=== PATIENT | female | born 2005 | race Caucasian/White ===

== ENCOUNTER 2024-06-07 01:45 | Inpatient (IN) | payer SELFPAY ==
[~2024-06-07] VITALS: Ht 152.4 cm; Wt 64.9 kg
[2024-06-07 02:39] LABS: CLARITY URINE CLOUDY (CLEAR); COLOR URINE YELLOW (YELLOW); GLUCOSE URINE NEGATIVE (NEGATIVE); KETONES URINE TRACE (NEGATIVE); LEUKOCYTE ESTERASE URINE 1+ (NEGATIVE); NITRITE URINE NEGATIVE (NEGATIVE); OCCULT BLOOD URINE NEGATIVE (NEGATIVE); PROTEIN URINE 1+ (NEGATIVE); SPECIFIC GRAVITY URINE 1.022 (1.005-1.030)
[2024-06-07 02:45] LABS: BASOPHILS % 0.3 % (0.0-2.0); EOSINOPHILS % 0.1 % (0.0-5.0); HEMATOCRIT. 38.3 % (36.0-48.0); HEMOGLOBIN. 12.9 g/dL (12.0-16.0); LYMPHOCYTES % 13.1 % (20.0-50.0); MEAN CORPUSCULAR HEMOGLOBIN 29.7 pg (28.0-32.0); MEAN CORPUSCULAR HGB CONC 33.7 g/dL (31.0-37.0); MEAN CORPUSCULAR VOLUME 88.3 fL (81.0-99.0); MEAN PLATELET VOLUME 7.4 fl (7.4-10.4); MONOCYTES % 8.2 % (2.0-8.0); NEUTROPHILS % 78.3 % (40.0-76.0); PLATELET 310 x1000/uL (130-400); RED BLOOD CELL COUNT 4.34 mill/uL (4.2-5.4); RED CELL DISTRIBUTION WIDTH 13.7 % (11.6-14.6); WHITE BLOOD COUNT 13.9 x1000/uL (4.5-11.0)
[2024-06-07 02:59] LABS: CHLORIDE 105 mEq/L (98-107); POTASSIUM 3.6 mEq/L (3.5-5.1); SODIUM 136 mEq/L (136-145)
[2024-06-07 03:00] LABS: CALCIUM 8.6 mg/dL (8.7-10.4); CARBON DIOXIDE 23 mEq/L (21-32)
[2024-06-07 03:02] LABS: HCG SCREEN NEGATIVE
[2024-06-07 03:05] LABS: CREATININE 0.9 mg/dL (0.6-1.0); GLUCOSE 106 mg/dL (70-105); UREA NITROGEN BLOOD 9 mg/dL (9-23)
[2024-06-07 03:07] LABS: ALANINE AMINOTRANSFERASE 41 IU/L (10-49); ALBUMIN 4.6 g/dL (3.2-4.8); ASPARTATE AMINOTRANSFERASE 19 IU/L (<34); BILIRUBIN DIRECT 0.1 mg/dL (<=3.0); BILIRUBIN TOTAL 0.4 mg/dL (0.1-1.0); PROTEIN TOTAL 7.2 g/dL (6.0-8.3)
[2024-06-07 04:46] LABS: SQUAMOUS EPITHELIAL CELL URINE 3+ /lpf (RARE/1+)
[2024-06-07 04:49] LABS: RBC URINE 0-2 /hpf (0-2)
[2024-06-07 04:52] LABS: BACTERIA URINE TRACE; YEAST URINE 1+
[2024-06-07 05:15] LABS: BASOPHILS % 0.1 % (0.0-2.0); EOSINOPHILS % 0.1 % (0.0-5.0); HEMATOCRIT. 39.2 % (36.0-48.0); LYMPHOCYTES % 17.2 % (20.0-50.0); MEAN CORPUSCULAR HEMOGLOBIN 29.8 pg (28.0-32.0); MEAN CORPUSCULAR HGB CONC 33.3 g/dL (31.0-37.0); MEAN CORPUSCULAR VOLUME 89.6 fL (81.0-99.0); MEAN PLATELET VOLUME 7.5 fl (7.4-10.4); MONOCYTES % 9.1 % (2.0-8.0); NEUTROPHILS % 73.5 % (40.0-76.0); PLATELET 309 x1000/uL (130-400); RED BLOOD CELL COUNT 4.37 mill/uL (4.2-5.4); RED CELL DISTRIBUTION WIDTH 13.7 % (11.6-14.6); WHITE BLOOD COUNT 16.2 x1000/uL (4.5-11.0)
[2024-06-07 05:17] LABS: CARBON DIOXIDE 22 mEq/L (21-32); CHLORIDE 105 mEq/L (98-107); POTASSIUM 3.9 mEq/L (3.5-5.1); SODIUM 137 mEq/L (136-145)
[2024-06-07 05:18] LABS: CALCIUM 8.7 mg/dL (8.7-10.4)
[2024-06-07 05:22] LABS: PROTHROMBIN TIME 11.4 sec (9.6-11.0)
[2024-06-07 05:23] LABS: CREATININE 0.8 mg/dL (0.6-1.0); GLUCOSE 105 mg/dL (70-105); UREA NITROGEN BLOOD 6 mg/dL (9-23)
[2024-06-07] MEDS: SODIUM CHLORIDE 0.9% 1000ML BAG (SEPSIS BOLUS) IV ONE (05:29)
[2024-06-07] MEDS: SODIUM CHLORIDE 0.9% 1,000 ML IV ONE (05:30)
[2024-06-07] MEDS: CEFTRIAXONE 1GM/50ML 50 ML IV NR (05:36)
[2024-06-07] MEDS: VANCOMYCIN 1G PREMIX 200 ML IV SCH (06:12)
[2024-06-07] MEDS ORDERED: MAGNESIUM/ALUMINUM HYDROXIDE/SIMETHICONE 30ML UDC PO PRN (09:30)
[2024-06-07] MEDS ORDERED: DOCUSATE SODIUM 100MG CAPSULE PO PRN (09:30)
[2024-06-07] MEDS ORDERED: CLONIDINE 0.1MG TABLET PO PRN (09:30)
[2024-06-07] MEDS ORDERED: ACETAMINOPHEN 325MG TABLET PO PRN (09:30)
[2024-06-07] MEDS ORDERED: IPRATROPIUM/ALBUTEROL 0.5-3(2.5)MG/3ML NEB HHN PRN (09:30)
[2024-06-07] MEDS ORDERED: ONDANSETRON HCL 4MG/2ML INJ IV PRN (09:30)
[2024-06-07] MEDS ORDERED: GUAIFENESIN 200MG/10ML SUGAR FREE UDC PO PRN (09:30)
[2024-06-07] MEDS: KETOROLAC 30MG/ML VIAL IV NR (10:39)
[2024-06-07] MEDS: SODIUM CHLORIDE 0.9% 1,000 ML IV SCH (10:44)
[2024-06-07 11:04] VITALS: BP 116/72; PULSE 76; RESP 20; TEMP 97.2
[2024-06-07] MEDS: ACETAMINOPHEN 325MG TABLET PO PRN (11:13)
[2024-06-07 12:00] VITALS: BP 116/72; PULSE 110; RESP 20; TEMP 97.2
[2024-06-07 15:30] LABS: *AMPHETAMINES SCREEN URINE NEGATIVE (NEGATIVE)
[2024-06-07] MEDS: TAMSULOSIN HCL 0.4MG SR CAPSULE PO SCH (15:30)
[2024-06-07 15:31] LABS: *BARBITURATES SCREEN URINE NEGATIVE (NEGATIVE); *BENZODIAZEPINES SCREEN URINE NEGATIVE (NEGATIVE); *COCAINE SCREEN URINE NEGATIVE (NEGATIVE); CANNABINOID URINE SCREEN NEGATIVE (NEGATIVE); ECSTASY MDMA SCREEN URINE NEGATIVE (NEGATIVE); METHADONE URINE SCREEN NEGATIVE (NEGATIVE); OPIATES URINE SCREEN NEGATIVE (NEGATIVE); PHENCYCLIDINE URINE SCREEN NEGATIVE (NEGATIVE)
[2024-06-07 16:00] VITALS: BP 106/63; PULSE 82; RESP 20; TEMP 97.5
[2024-06-07 20:00] VITALS: BP 114/73; PULSE 89; RESP 20; TEMP 97.5
[2024-06-07] MEDS: FAMOTIDINE 20MG TABLET PO SCH (20:21)
[2024-06-08] VITALS: BP 98/62; PULSE 86; RESP 20; TEMP 97.6
[2024-06-08 04:00] VITALS: BP 101/57; PULSE 88; RESP 20; TEMP 97.9
[2024-06-08] MEDS: CEFTRIAXONE 1GM/50ML 50 ML IV SCH (04:40)
[2024-06-08 08:00] VITALS: BP 102/49; PULSE 67; RESP 20; TEMP 97.9
[2024-06-08 11:04] LABS: CARBON DIOXIDE 25 mEq/L (21-32); CHLORIDE 108 mEq/L (98-107); HEMATOCRIT 37.8 % (36.0-48.0); HEMOGLOBIN 12.7 g/dL (12.0-16.0); MEAN CORPUSCULAR HGB CONC 33.5 g/dL (31.0-37.0); MEAN CORPUSCULAR VOLUME 89.5 fL (81.0-99.0); PLATELET 300 x1000/uL (130-400); POTASSIUM 3.6 mEq/L (3.5-5.1); RED BLOOD CELL COUNT 4.22 mill/uL (4.2-5.4); RED CELL DISTRIBUTION WIDTH 13.9 % (11.6-14.6); SODIUM 140 mEq/L (136-145)
[2024-06-08 11:05] LABS: CALCIUM 8.8 mg/dL (8.7-10.4)
[2024-06-08 11:10] LABS: CREATININE 0.7 mg/dL (0.6-1.0); GLUCOSE 127 mg/dL (70-105); UREA NITROGEN BLOOD 6 mg/dL (9-23)
[2024-06-08 12:00] VITALS: BP 106/70; PULSE 83; RESP 19; TEMP 98.1
[2024-06-08 13:05] LABS: TROPONIN I HIGH SENSITIVITY < 4 ng/L (3.0-34)
[2024-06-08] MEDS: KETOROLAC 15MG/ML VIAL IV PRN (14:28)
[2024-06-08 16:00] VITALS: BP 105/60; PULSE 92; RESP 19; TEMP 98.1
[2024-06-08] MEDS ORDERED: FLUCONAZOLE 150MG TABLET PO NR (16:30)
[2024-06-08] MEDS ORDERED: KETO10TA2 MT (16:54)
[2024-06-08] MEDS ORDERED: LEVO750T68 MT (16:54)
[2024-06-08] MEDS ORDERED: FLUC150T46 MT (16:54)
[2024-06-08 17:21] VITALS: BP 105/60; PULSE 92; TEMP 98.1; O2SAT 97
== END 2024-06-08 18:30 | disposition home or self-care (01) | DRG 720 ==
LOC: ER 01:45 → 7WST 04:54
PROVIDERS: ADMIT Internal Medicine; ATTEND Internal Medicine
DX: A41.9 Sepsis, unspecified organism (principal); N12 Tubulo-interstitial nephritis, not specified as acute or chronic; Z87.442 Personal history of urinary calculi
CPT/HCPCS: 36415; 71045; 74176; 76770; 80048; 80076; 80305; 81003; 83605; 84145; 84484; 84703; 85025; 85027; 87106; 93005; 99291; J0696; J1885; J3370; J7030